=== PATIENT | female | born 1960 | race African-American/Black ===

== ENCOUNTER 2024-01-06 11:32 | Inpatient (IN) | payer OTHER ==
[2024-01-06 11:57] VITALS: BMI 45.3
[2024-01-06 13:21] LABS: BASO % 0.6 % (0-2.0); EOS % 2.8 % (0-4.5); HEMATOCRIT 29.6 % (32.4-45.2); HEMOGLOBIN 9.5 GM/dL (10.7-15.3); LYMPH % 35.9 % (8-40); MCH 29.8 pg (25.7-33.7); MCHC 32.3 g/dl (32.0-36.0); MEAN CELL VOLUME 92.3 fl (80-96); MONO % 10.6 % (3.8-10.2); NEUT % 50.1 % (42.8-82.8); PLATELET COUNT 262 10^3/uL (134-434); RBC 3.21 M/mm3 (3.60-5.2); RDW 14.6 % (11.6-15.6); WHITE BLOOD COUNT 2.5 K/mm3 (4.0-10.0)
[2024-01-06 13:47] LABS: CALCIUM 9.4 mg/dL (8.5-10.1)
[2024-01-06 13:48] LABS: ALBUMIN 3.7 g/dl (3.4-5.0); BLOOD UREA NITROGEN 15.6 mg/dL (7-18); MAGNESIUM 2.4 mg/dL (1.8-2.4)
[2024-01-06 13:51] LABS: CREATININE 0.7 mg/dL (0.55-1.3); PHOSPHOROUS 4.2 mg/dL (2.5-4.9)
[2024-01-06 13:52] LABS: BILIRUBIN,TOTAL 0.5 mg/dL (0.2-1); TOT PROT 7.2 g/dl (6.4-8.2)
[2024-01-06 14:33] LABS: HIV INTERPRETATION NEGATIVE (NEGATIVE)
[2024-01-06] MEDS ORDERED: ACETAMINOPHEN INJECTION 100 ML IVPB ONE (15:38)
[2024-01-06] MEDS: ACETAMINOPHEN 1000 MG/100 ML BAG IVPB ONE (15:51)
[2024-01-06] MEDS ORDERED: ALBUTEROL SO4 HFA INHALER IH PRN (16:22)
[2024-01-06] MEDS ORDERED: ENOXAPARIN NA (PORCINE) 40 MG/0.4 ML DISP.SYRIN SQ ONE (18:31)
[2024-01-06] MEDS ORDERED: PANTOPRAZOLE 40 MG TABLET PO ONE (18:31)
[2024-01-06] MEDS: ACETAMINOPHEN 325 MG TABLET (FP) PO PRN (21:18)
[2024-01-06] MEDS: POLYETHYLENE GLYCOL (HEALTHYLAX) 3350 17 GM PACKET PO SCH (21:18)
[2024-01-06] MEDS: DOCUSATE SODIUM 100 MG CAPSULE (FP) PO SCH (21:18)
[2024-01-06] MEDS: MUPIROCIN 2% TOPICAL OINTMENT 22 GM TUBE TP SCH (22:20)
[2024-01-06] MEDS: ENOXAPARIN NA (PORCINE) 40 MG/0.4 ML DISP.SYRIN SQ SCH (22:22)
[2024-01-06] MEDS: PANTOPRAZOLE 40 MG TABLET PO SCH (22:23)
[2024-01-07 00:57] LABS: EPI CELLS >36 /uL (0-25.1); HYALINE CASTS 1 /uL (0-3.1); PH,URINE 5.5 (5.0-8.0); URINE APPEARANCE CLEAR; URINE BACTERIA 66 /uL (0-1359); URINE BILIRUBIN NEGATIVE (NEGATIVE); URINE COLOR YELLOW; URINE GLUCOSE (UA) NEGATIVE (NEGATIVE); URINE KETONE NEGATIVE (NEGATIVE); URINE LEUK ESTERASE 1+ (NEGATIVE); URINE NITRITE NEGATIVE (NEGATIVE); URINE PROTEIN TRACE (NEGATIVE); URINE RBC 52 /uL (0-23.9); URINE WBC 55 /uL (0-25.8)
[2024-01-07 09:51] LABS: BASO % 0.2 % (0-2.0); EOS % 4.5 % (0-4.5); HEMATOCRIT 28.7 % (32.4-45.2); HEMOGLOBIN 9.4 GM/dL (10.7-15.3); LYMPH % 37.1 % (8-40); MCH 29.7 pg (25.7-33.7); MCHC 32.6 g/dl (32.0-36.0); MEAN PLT VOLUME 7.4 fl (7.5-11.1); MONO % 10.2 % (3.8-10.2); PLATELET COUNT 257 10^3/uL (134-434); RBC 3.16 M/mm3 (3.60-5.2); RDW 14.3 % (11.6-15.6)
[2024-01-07 09:54] LABS: WHITE BLOOD COUNT 1.9 K/mm3 (4.0-10.0)
[2024-01-07 10:31] LABS: ANISOCYTOSIS 0; MACROCYTOSIS 0; OVALOCYTE 1+
[2024-01-07] MEDS: amLODIPine BESYLATE 5 MG TABLET (FP) PO SCH (10:37)
[2024-01-07] MEDS: FERROUS SO4 325 MG TABLET (FP) PO SCH (10:37)
[2024-01-07] MEDS: SPIRONOLACTONE 25 MG TABLET PO SCH (10:37)
[2024-01-07] MEDS: CHOLECALCIFEROL (VIT D3) 1,000 UNIT (25 MCG) TABLET PO SCH (10:37)
[2024-01-07] MEDS: ASPIRIN COATED 81 MG TABLET.EC PO SCH (10:38)
[2024-01-07] MEDS: ONDANSETRON 4 MG/2 ML VIAL IVPUSH PRN (10:43)
[2024-01-07] MEDS: BISACODYL 10 MG SUPP.RECT PR ONE (15:58)
[2024-01-08 09:31] LABS: BASO % 0.5 % (0-2.0); EOS % 1.5 % (0-4.5); HEMATOCRIT 28.4 % (32.4-45.2); HEMOGLOBIN 9.4 GM/dL (10.7-15.3); LYMPH % 27.7 % (8-40); MCH 30.1 pg (25.7-33.7); MCHC 33.1 g/dl (32.0-36.0); MEAN CELL VOLUME 90.9 fl (80-96); MONO % 9.9 % (3.8-10.2); NEUT % 60.4 % (42.8-82.8); PLATELET COUNT 242 10^3/uL (134-434); RBC 3.12 M/mm3 (3.60-5.2); RDW 14.2 % (11.6-15.6); WHITE BLOOD COUNT 2.6 K/mm3 (4.0-10.0)
[2024-01-08] MEDS: morphine SULFATE 4 MG/ML VIAL IVPUSH PRN (13:33)
[2024-01-08] MEDS ORDERED: FENTANYL PATCH WASTE TD PRN (17:38)
[2024-01-08] MEDS: morphine SULFATE IMMEDIATE RELEASE 30 MG TAB PO PRN (17:56)
[2024-01-08] MEDS: fentaNYL 50mcg/hr PATCH.TD72 TD SCH (17:56)
[2024-01-08] MEDS: MINERAL OIL/PET HY-PHL TOPICAL OINTMENT 454 GM JAR TP SCH (22:31)
[2024-01-09] MEDS: POLYETHYLENE GLYCOL (HEALTHYLAX) 3350 17 GM PACKET PO SCH (09:58)
[2024-01-09 10:09] LABS: BASO % 0.8 % (0-2.0); EOS % 4.3 % (0-4.5); HEMATOCRIT 31.1 % (32.4-45.2); LYMPH % 29.3 % (8-40); MCH 29.4 pg (25.7-33.7); MCHC 32.2 g/dl (32.0-36.0); MEAN CELL VOLUME 91.2 fl (80-96); MEAN PLT VOLUME 8.2 fl (7.5-11.1); MONO % 9.6 % (3.8-10.2); PLATELET COUNT 265 10^3/uL (134-434); RBC 3.42 M/mm3 (3.60-5.2); RDW 14.2 % (11.6-15.6); WHITE BLOOD COUNT 2.2 K/mm3 (4.0-10.0)
[2024-01-10] MEDS: morphine SULFATE IMMEDIATE RELEASE 30 MG TAB PO SCH (10:03)
[2024-01-10 12:23] LABS: BASO % 0.7 % (0-2.0); EOS % 5.3 % (0-4.5); HEMATOCRIT 28.9 % (32.4-45.2); HEMOGLOBIN 9.4 GM/dL (10.7-15.3); LYMPH % 30.6 % (8-40); MCH 29.5 pg (25.7-33.7); MCHC 32.5 g/dl (32.0-36.0); MEAN CELL VOLUME 90.9 fl (80-96); MONO % 12.1 % (3.8-10.2); NEUT % 51.3 % (42.8-82.8); PLATELET COUNT 264 10^3/uL (134-434); RBC 3.18 M/mm3 (3.60-5.2); RDW 14.3 % (11.6-15.6)
[2024-01-10] MEDS: KETOCONAZOLE 2% CREAM - 60GM TUBE TP SCH (13:14)
[2024-01-11 08:31] LABS: BASO % 0.8 % (0-2.0); EOS % 5.6 % (0-4.5); HEMATOCRIT 29.7 % (32.4-45.2); HEMOGLOBIN 9.7 GM/dL (10.7-15.3); LYMPH % 38.4 % (8-40); MCH 29.5 pg (25.7-33.7); MCHC 32.6 g/dl (32.0-36.0); MEAN CELL VOLUME 90.7 fl (80-96); MEAN PLT VOLUME 8.1 fl (7.5-11.1); MONO % 12.6 % (3.8-10.2); NEUT % 42.6 % (42.8-82.8); PLATELET COUNT 248 10^3/uL (134-434); RBC 3.27 M/mm3 (3.60-5.2); RDW 14.3 % (11.6-15.6)
[2024-01-11] MEDS ORDERED: fentaNYL 50mcg/hr PATCH.TD72 TD SCH (09:15)
[2024-01-11] MEDS: LOSARTAN POTASSIUM 50 MG TABLET PO SCH (10:11)
[2024-01-11] MEDS: IBUPROFEN 400 MG TABLET (FP) PO SCH (10:11)
[2024-01-11] MEDS: morphine SULFATE IMMEDIATE RELEASE 30 MG TAB PO SCH (10:22)
[2024-01-11] MEDS: PREGABALIN 50 MG CAPSULE PO SCH (14:11)
[2024-01-11] MEDS: FENTANYL PATCH WASTE TD PRN (17:46)
[2024-01-12 09:24] LABS: BASO % 0.7 % (0-2.0); EOS % 6.9 % (0-4.5); HEMATOCRIT 28.5 % (32.4-45.2); HEMOGLOBIN 9.2 GM/dL (10.7-15.3); LYMPH % 24.5 % (8-40); MCHC 32.4 g/dl (32.0-36.0); MEAN CELL VOLUME 89.7 fl (80-96); MEAN PLT VOLUME 7.6 fl (7.5-11.1); MONO % 11.2 % (3.8-10.2); NEUT % 56.7 % (42.8-82.8); PLATELET COUNT 254 10^3/uL (134-434); RBC 3.18 M/mm3 (3.60-5.2); RDW 14.7 % (11.6-15.6); WHITE BLOOD COUNT 2.1 K/mm3 (4.0-10.0)
[2024-01-12 09:59] LABS: BLOOD UREA NITROGEN 10.1 mg/dL (7-18); CALCIUM 9.2 mg/dL (8.5-10.1)
[2024-01-12 10:02] LABS: CREATININE 0.5 mg/dL (0.55-1.3)
[2024-01-12] MEDS: FENTANYL PATCH WASTE TD SCH (10:11)
[2024-01-12] MEDS: IBUPROFEN 400 MG TABLET (FP) PO SCH (10:19)
[2024-01-12] MEDS: AMINO ACIDS/PROTEIN HYDROLYS 30 ML LIQUID.PKT PO SCH (14:21)
[2024-01-12] MEDS ORDERED: BISACODYL 10 MG SUPP.RECT PR PRN (17:46)
[2024-01-13] MEDS: CYANOCOBALAMIN (VITAMIN B-12) 1000 MCG/1 ML VIAL IM SCH (09:28)
[2024-01-14 07:07] VITALS: RESP 18
[2024-01-14] MEDS: ONDANSETRON 4 MG/2 ML VIAL IVPUSH PRN (11:23)
[2024-01-14] MEDS: IBUPROFEN 600 MG TABLET (FP) PO SCH (15:39)
[2024-01-14 15:47] VITALS: BP 145/89; PULSE 93; TEMP 97.9
== END 2024-01-14 18:23 | DRG 607 ==
LOC: JER 11:32 → JERBED 16:20 → J5S 19:00
PROVIDERS: ADMIT Internal Medicine; ATTEND Internal Medicine
DX: I89.0 Lymphedema, not elsewhere classified (principal); L02.214 Cutaneous abscess of groin; Z68.42 Body mass index [BMI] 45.0-49.9, adult; L02.31 Cutaneous abscess of buttock; L02.419 Cutaneous abscess of limb, unspecified; C51.9 Malignant neoplasm of vulva, unspecified; I10 Essential (primary) hypertension; J45.909 Unspecified asthma, uncomplicated; E66.01 Morbid (severe) obesity due to excess calories; K59.00 Constipation, unspecified; R26.81 Unsteadiness on feet; M62.81 Muscle weakness (generalized); L73.2 Hidradenitis suppurativa; I25.10 Atherosclerotic heart disease of native coronary artery without angina pectoris; D50.9 Iron deficiency anemia, unspecified; D72.819 Decreased white blood cell count, unspecified; E53.8 Deficiency of other specified B group vitamins; W18.30XA Fall on same level, unspecified, initial encounter; Y92.009 Unspecified place in unspecified non-institutional (private) residence as the place of occurrence of the external cause; Y99.9 Unspecified external cause status
CPT/HCPCS: 0241U-QW; 36415; 71045-TC-FY; 72170-TC-FY; 80048; 80053; 81003; 82728; 83540; 83550; 83735; 84100; 84484; 85025; 86803; 87086; 87186; 87389; 87635; 93005; 93010; 97116-GP; 97162-GP; 99285-25; J0131